=== PATIENT | male | born 1995 | race Two or more races ===

== ENCOUNTER → 2019-05-28 | Outpatient (CLI) | payer OTHER ==
[~2019-05-28] MED LIST: MAGNESIUM; RXCODACET PO; RXONDA4ODT MM; [UNRECOGNIZED DRUG - CODE]; [UNRECOGNIZED DRUG - OTHER]; [UNRECOGNIZED DRUG - OTHER]
[2019-05-28 12:09] LABS: BASOPHILS ABSOLUTE AUTO 0.01 K/mm3 (0.00-0.23); BASOPHILS PERCENT AUTO 0 % (0-2); EOSINOPHILS PERCENT AUTO 1 % (0-6); Hematocrit 47.7 % (37.0-53.0); Hemoglobin 16.2 g/dL (13.5-17.5); IMMATURE GRAN ABSOLUTE AUTO 0.01 K/mm3 (0.00-0.10); IMMATURE GRAN PERCENT AUTO 0 % (0-1); LYMPHOCYTES ABSOLUTE AUTO 1.04 K/mm3 (0.84-5.20); LYMPHOCYTES PERCENT AUTO 14 % (21-46); MONOCYTES ABSOLUTE AUTO 0.68 K/mm3 (0.16-1.47); MONOCYTES PERCENT AUTO 9 % (4-13); Mean Corpuscular HGB 27.8 pg (26.0-34.0); Mean Corpuscular Volume 82 fL (80-100); Mean Platelet Volume 11.4 fL (9.1-12.4); NEUTROPHILS ABSOLUTE AUTO 5.58 K/mm3 (1.96-9.15); NEUTROPHILS PERCENT AUTO 75 % (41-73); Platelet Count 175 K/mm3 (150-400); RDW Coefficient Variation 13.7 % (11.7-14.2); RDW Standard Deviation 39.7 fL (35.1-46.3); Red Blood Cell Count 5.83 M/mm3 (4.30-5.90); White Blood Cell Count 7.42 K/mm3 (4.00-11.30)
[2019-05-28 12:18] LABS: Alanine Aminotransfer (ALT/SGP 27 U/L (12-78); Albumin, Blood 4.2 g/dL (3.4-5.0); Alk Phos 63 U/L (40-126); Anion Gap 9 mmol/L (6-16); Aspartate Aminotrans (AST/SGOT 18 U/L (12-37); Bilirubin, Total 1.8 mg/dL (0.1-1.0); Blood Urea Nitrogen 15 mg/dL (8-24); Bun/Creatinine Ratio 13.4 (12.0-20.0); CO2, Blood 27 mmol/L (21-32); Chloride, Blood 107 mmol/L (98-108); Creatinine, Blood 1.12 mg/dL (0.60-1.20); Globulin, Blood 4.1 g/dL (2.2-4.0); Glomerular Filtration Rate >60 (60-); Glucose, Blood 97 mg/dL (70-99); Potassium, Blood 4.2 mmol/L (3.5-5.5); Sodium, Blood 143 mmol/L (136-145); Total Protein, Blood 8.3 g/dL (6.4-8.2)
[2019-05-28 13:36] LABS: Bilirubin, Direct 0.3 mg/dL (0.0-0.3)
== END | disposition home or self-care (01) ==
LOC: LAB EV 12:04 → LAB SHORT 12:04
PROVIDERS: Physician Assistant
DX: R10.84 Generalized abdominal pain (principal); R74.8 Abnormal levels of other serum enzymes
CPT/HCPCS: 80053; 82248; 83690; 85025

== ENCOUNTER → 2020-10-17 | Outpatient (CLI) | payer BC ==
[2020-10-17 13:38] LABS: Source, Urine Voided
[2020-10-17 13:47] LABS: Bacteria Not Seen /hpf; Red Blood Cells, Urine Rare /hpf (0-2); Squamous Epithelial Cells Not Seen /hpf (Few); White Blood Cells, Urine Not Seen /hpf (0-5)
[2020-10-19 16:08] LABS: CORONAVIRUS (COVID19) CSH-NRL Negative (Negative)
== END | disposition home or self-care (01) ==
LOC: LAB SHORT 13:37
PROVIDERS: Physician Assistant
DX: R31.9 Hematuria, unspecified (principal); Z20.9 Contact with and (suspected) exposure to unspecified communicable disease
CPT/HCPCS: 81015; U0003

== ENCOUNTER → 2021-07-03 | Outpatient (CLI) | payer OTHER ==
[2021-07-03 18:51] LABS: Hematocrit 35.7 % (37.0-53.0); Mean Corpuscular HGB 27.7 pg (26.0-34.0); Mean Corpuscular HGB Conc 33.6 g/dL (31.5-36.5); Mean Corpuscular Volume 82 fL (80-100); Platelet Count 203 K/mm3 (150-400); RDW Coefficient Variation 12.8 % (11.7-14.2); RDW Standard Deviation 38.5 fL (35.1-46.3); Red Blood Cell Count 4.33 M/mm3 (4.30-5.90); White Blood Cell Count 6.38 K/mm3 (4.00-11.30)
[2021-07-03 19:09] LABS: Albumin, Blood 3.7 g/dL (3.4-5.0); Albumin/Globulin Ratio 0.8 (0.8-1.8); Bilirubin, Total 0.5 mg/dL (0.1-1.0); Bun/Creatinine Ratio 13.2 (12.0-20.0); Calcium, Blood 9.2 mg/dL (8.5-10.1); Creatinine, Blood 3.19 mg/dL (0.60-1.20); Globulin, Blood 4.4 g/dL (2.2-4.0); Magnesium, Blood 2.3 mg/dL (1.6-2.4); Phosphorus, Blood 4.4 mg/dL (2.5-4.9); Total Protein, Blood 8.1 g/dL (6.4-8.2)
[2021-07-03 19:14] LABS: Thyroid Stimulating Hormone 1.97 uIU/mL (0.360-4.800)
[2021-07-03 19:34] LABS: BAND PERCENT MAN 1 % (0-8); BASOPHILS ABSOLUTE MAN 0.06 K/mm3 (0.00-0.23); BASOPHILS PERCENT MAN 1 % (0-2); EOSINOPHILS ABSOLUTE MAN 0.51 K/mm3 (0.00-0.68); EOSINOPHILS PERCENT MAN 8 % (0-6); LYMPHOCYTES ABSOLUTE MAN 1.33 K/mm3 (0.84-5.20); LYMPHOCYTES PERCENT MAN 21 % (21-46); MONOCYTES ABSOLUTE MAN 0.31 K/mm3 (0.16-1.47); MONOCYTES PERCENT MAN 5 % (4-13); NEUTROPHILS ABSOLUTE MAN 4.14 K/mm3 (1.96-9.15); SEG NEUTROPHILS PERCENT MAN 64 % (41-73); TOTAL CELLS COUNTED 100
== END | disposition home or self-care (01) ==
LOC: LAB SHORT 18:15
PROVIDERS: Student in an Organized Health Care Education/Training Program
DX: F32.A Depression, unspecified (principal); Z94.0 Kidney transplant status
CPT/HCPCS: 80053; 82306; 82607; 82746; 83735; 84100; 84443; 85007; 85027

== ENCOUNTER → 2021-10-15 | Outpatient (CLI) | payer OTHER ==
[2021-10-15 09:43] LABS: BASOPHILS ABSOLUTE AUTO 0.01 K/mm3 (0.00-0.23); BASOPHILS PERCENT AUTO 0 % (0-2); EOSINOPHILS ABSOLUTE AUTO 0.23 K/mm3 (0.00-0.68); EOSINOPHILS PERCENT AUTO 6 % (0-6); Hematocrit 26.7 % (37.0-53.0); Hemoglobin 8.4 g/dL (13.5-17.5); IMMATURE GRAN ABSOLUTE AUTO 0.02 K/mm3 (0.00-0.10); IMMATURE GRAN PERCENT AUTO 1 % (0-1); LYMPHOCYTES ABSOLUTE AUTO 0.65 K/mm3 (0.84-5.20); LYMPHOCYTES PERCENT AUTO 17 % (21-46); MONOCYTES ABSOLUTE AUTO 0.58 K/mm3 (0.16-1.47); MONOCYTES PERCENT AUTO 15 % (4-13); Mean Corpuscular HGB 25.6 pg (26.0-34.0); Mean Corpuscular HGB Conc 31.5 g/dL (31.5-36.5); Mean Corpuscular Volume 81 fL (80-100); Mean Platelet Volume 10.5 fL (9.1-12.4); NEUTROPHILS ABSOLUTE AUTO 2.34 K/mm3 (1.96-9.15); NEUTROPHILS PERCENT AUTO 61 % (41-73); Platelet Count 229 K/mm3 (150-400); RDW Coefficient Variation 14.2 % (11.7-14.2); Red Blood Cell Count 3.28 M/mm3 (4.30-5.90); White Blood Cell Count 3.83 K/mm3 (4.00-11.30)
== END | disposition home or self-care (01) ==
LOC: LAB 09:35 → LAB SHORT 09:35
PROVIDERS: Family Medicine
DX: R50.9 Fever, unspecified (principal)
CPT/HCPCS: 85025

== ENCOUNTER 2021-12-14 02:48 | Day surgery (SDC) | payer BC, OTHER ==
[2021-12-14 16:14] LABS: Percent Saturation 14.2 % (20.0-50.0)
== END 2021-12-14 14:37 | disposition home or self-care (01) ==
LOC: ATC 02:48
PROVIDERS: Internal Medicine Nephrology
DX: D50.9 Iron deficiency anemia, unspecified (principal); N18.6 End stage renal disease; D63.1 Anemia in chronic kidney disease; Z94.0 Kidney transplant status; N25.81 Secondary hyperparathyroidism of renal origin; D89.89 Other specified disorders involving the immune mechanism, not elsewhere classified; Z79.82 Long term (current) use of aspirin
CPT/HCPCS: 83540; 83550; Q5106

== ENCOUNTER 2021-12-28 00:58 | Day surgery (SDC) | payer BC, OTHER | END 2021-12-28 14:33 | disposition home or self-care (01) | LOC: ATC 00:58 | DX: N18.5 Chronic kidney disease, stage 5 (principal); D63.1 Anemia in chronic kidney disease; Z94.4 Liver transplant status; N25.81 Secondary hyperparathyroidism of renal origin; Z99.2 Dependence on renal dialysis; T86.11 Kidney transplant rejection | CPT/HCPCS: 96372; Q5106 ==

== ENCOUNTER 2022-01-11 03:23 | Day surgery (SDC) | payer BC, OTHER | END 2022-01-11 14:49 | disposition home or self-care (01) | LOC: ATC 03:23 | DX: D50.9 Iron deficiency anemia, unspecified (principal); N18.5 Chronic kidney disease, stage 5; E55.9 Vitamin D deficiency, unspecified; T86.11 Kidney transplant rejection | CPT/HCPCS: 96372; Q5106 ==

== ENCOUNTER 2022-01-25 02:28 | Day surgery (SDC) | payer BC, OTHER | END 2022-01-25 15:11 | disposition home or self-care (01) | LOC: ATC 02:28 | DX: D50.9 Iron deficiency anemia, unspecified (principal); E55.9 Vitamin D deficiency, unspecified; N18.5 Chronic kidney disease, stage 5; T86.11 Kidney transplant rejection; N25.81 Secondary hyperparathyroidism of renal origin | CPT/HCPCS: 96372; Q5106 ==

== ENCOUNTER 2022-02-08 01:01 | Day surgery (SDC) | payer BC, OTHER | END 2022-02-08 15:16 | disposition home or self-care (01) | LOC: ATC 01:01 | DX: D50.9 Iron deficiency anemia, unspecified (principal); N18.5 Chronic kidney disease, stage 5; D63.1 Anemia in chronic kidney disease; E55.9 Vitamin D deficiency, unspecified; T86.11 Kidney transplant rejection; N25.81 Secondary hyperparathyroidism of renal origin | CPT/HCPCS: 96372; Q5106 ==

== ENCOUNTER 2022-02-22 01:37 | Day surgery (SDC) | payer OTHER ==
--- NOTE | 2022-02-22 11:07 | NUR ---
LEFT A MESSAGE WITH DR RIVERA'S OFFICE TO UPDATE THEM THAT THE PATIENT HAS REQUIRED AN INCREASE OF 25% EACH VISIT AND WILL BE GETTING 59,000 UNITS TODAY. AWAITING A RETURN CALL
--- NOTE | 2022-02-22 15:36 | NUR ---
PT STS HE HAS BEEN FOLLOWING UP WITH DR RIVERA RE HIS HCT/HGB. YANI QUINTEROS RN ATTEMPTED TO REACH DR RIVERA AND LEFT A MESSAGE.
== END 2022-02-22 15:26 | disposition home or self-care (01) ==
LOC: ATC 01:37
DX: N18.5 Chronic kidney disease, stage 5 (principal); D63.1 Anemia in chronic kidney disease; N25.81 Secondary hyperparathyroidism of renal origin; Z94.0 Kidney transplant status; Z79.82 Long term (current) use of aspirin; Z79.899 Other long term (current) drug therapy
CPT/HCPCS: 96372; Q5106

== ENCOUNTER 2022-03-15 00:48 | Day surgery (SDC) | payer OTHER ==
--- NOTE | 2022-03-15 15:43 | NUR ---
LAB WORK DRAWN FROM [facility] WITH 23 G BUTTERFLY NEEDLE BY Kofi QUINTEROS RN.
[2022-03-15 15:46] LABS: Hematocrit 30.8 % (37.0-53.0); Hemoglobin 9.5 g/dL (13.5-17.5)
== END 2022-03-15 16:41 | disposition home or self-care (01) ==
LOC: ATC 00:48
PROVIDERS: Internal Medicine Nephrology
DX: N18.5 Chronic kidney disease, stage 5 (principal); D63.1 Anemia in chronic kidney disease; N25.81 Secondary hyperparathyroidism of renal origin; Z94.0 Kidney transplant status; Z79.82 Long term (current) use of aspirin; Z79.899 Other long term (current) drug therapy
CPT/HCPCS: 36415; 85014; 85018; 96372; Q5106

== ENCOUNTER 2022-04-29 01:09 | Day surgery (SDC) | payer OTHER | END 2022-04-29 14:46 | disposition home or self-care (01) | LOC: ATC 01:09 | DX: D50.9 Iron deficiency anemia, unspecified (principal); Z94.0 Kidney transplant status | CPT/HCPCS: Q5106 ==

== ENCOUNTER 2022-05-14 03:32 | Day surgery (SDC) | payer OTHER | END 2022-05-14 14:45 | disposition home or self-care (01) | LOC: ATC 03:32 | DX: D50.9 Iron deficiency anemia, unspecified (principal); N25.81 Secondary hyperparathyroidism of renal origin; Z94.0 Kidney transplant status; E55.9 Vitamin D deficiency, unspecified | CPT/HCPCS: 96372; Q5106 ==

== ENCOUNTER 2022-06-26 00:18 | Day surgery (SDC) | payer OTHER | END 2022-06-26 15:53 | disposition home or self-care (01) | LOC: ATC 00:18 | DX: N18.5 Chronic kidney disease, stage 5 (principal); D63.1 Anemia in chronic kidney disease; Z94.0 Kidney transplant status | CPT/HCPCS: 96372; Q5106 ==